=== PATIENT | male | born 2000 | race Caucasian/White ===

== ENCOUNTER 2023-08-29 21:27 | Emergency (ER) | payer OTHER, SELFPAY ==
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
[2023-08-29 21:36] VITALS: BP 116/73; PULSE 72; RESP 18; TEMP 36.7; O2SAT 98
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
[2023-08-29 22:32] VITALS: BP 123/64; PULSE 82; RESP 16; O2SAT 98
== END 2023-08-29 22:53 | disposition home or self-care (01) ==
LOC: ANHED 22:16
PROVIDERS: Emergency Provider Physician Assistant
DX: S06.0X0A Concussion without loss of consciousness, initial encounter (principal); S13.4XXA Sprain of ligaments of cervical spine, initial encounter; V43.52XA Car driver injured in collision with other type car in traffic accident, initial encounter
CPT/HCPCS: 70450; 72125; 99284

== ENCOUNTER 2023-10-01 16:38 | Emergency (ER) | payer OTHER, SELFPAY ==
[2023-10-01 16:46] VITALS: BP 142/74; PULSE 84; RESP 16; TEMP 37.2; O2SAT 99
[2023-10-01 17:34] LABS: EDINFLUASCREEN Negative; EDINFLUBSCREEN Negative; EDSTREPNEGPOS1 Presumptive Negative
--- NOTE | 2023-10-01 17:53 | ED.URI ---
HPI - URI/Sore Throat General Chief Complaint: Upper Respiratory Infection Stated Complaint: throat/cough/congestion/head/ears Time Seen by Provider: 10/01/23 17:12 Source: patient, RN notes reviewed and old records reviewed Mode of arrival: ambulatory Limitations: no limitations History of Present Illness HPI Narrative: 22 year old male accompanied by significant other presents to express care with complaints of 4 day history of sore throat, nasal congestion, cough, headache and some ear pain. Patient reports that he has not had any nausea or vomiting or diarrhea. He has been taking Mucinex and also some Theraflu for his symptoms. MD elicited complaint: cough, sore throat, rhinorrhea, nasal congestion and other (ear pain) Onset (ago): day(s) (4) Pain scale (0-10): 8 Treatments prior to arrival: other (Mucinex and Theraflu) Related Data Allergies Allergy/AdvReac Type Severity Reaction Status Date / Time Penicillins Allergy Hives Verified 10/01/23 17:31 Review of Systems Review of Systems: CONSTITUTIONAL: Reports malaise, chills, sweats, unknown if fever. EYES: Denies visual changes, redness, or discharge. ENT: Reports rhinorrhea, congestion, sinus pain, otalgia and sore throat. CARDIOVASCULAR: Denies chest pain, palpitations, or edema. RESPIRATORY: Reports cough.? Denies dyspnea. GASTROINTESTINAL: Denies abdominal pain, nausea, vomiting, diarrhea SKIN: Denies rash or itching. MUSCULOSKELETAL: Denies myalgia. NEUROLOGIC: Reports headache. All systems reviewed & are unremarkable except as noted in HPI and below PMFSH Past Medical History Medical History (Updated 10/03/23 @ 07:44 by Oriana Noriega NP) No pertinent past medical history Surgical History Surgical History (Updated 10/03/23 @ 07:47 by Oriana Noriega NP) No history of previous surgery Social History Social History (Updated 10/03/23 @ 07:43 by Oriana Noriega NP) Smoking status: Never smoker Alcohol intake: current Alcohol use details: social Substance use type: does not use Living arrangements: with family Gender identity (if verbalized by the patient): Male Comments At time of signature, agree with nursing past medical, surgical, social and family history. There is no relevant family history pertinent to the presenting complaint Exam Narrative: GENERAL: Well-appearing, well-nourished, and in no acute distress. HEAD: Normocephalic EYES: PERRLA, conjunctivae clear ENT: Nares clear, turbinates edematous and erythematous, clear discharge. Mucous membranes moist.Left TM red and bulging, Right TM pearly garcia with dull light reflex bilaterally; no tragal tenderness. Oropharynx erythematous without lesions. Tonsils not enlarged and without exudate, no drooling, no hoarseness, no trismus, uvula midline. NECK: Supple. No lymphadenopathy CHEST: Clear to auscultation, breath sounds equal. No wheezing, rhonchi, rales, or stridor. No respiratory distress, speaks in full sentences.cough,SAO2 99% on room air HEART: Regular rate and rhythm. No murmur heard. SKIN: Warm, dry, no rash. NEURO: Alert and oriented x3. PSYCH: Normal mood and affect Course Course Emergency Course: Patient is aware of diagnosis, understands and agrees to treatment plan.? Anticipatory guidance given.? Patient agrees to follow-up as directed and is aware of reasons to seek care at the emergency department. Portions of this record may have been created with voice recognition software Level of Care: Express Care Visit Vital Signs Vital signs: Vital Signs Temperature 37.2 C 10/01/23 16:46 Pulse Rate 84 10/01/23 16:46 Respiratory Rate 16 10/01/23 16:46 Blood Pressure 142/74 H 10/01/23 16:46 Pulse Oximetry 99 10/01/23 16:46 Oxygen Delivery Room Air 10/01/23 16:46 Temperature 37.2 C 10/01/23 16:46 Pulse Rate 84 10/01/23 16:46 Respiratory Rate 16 10/01/23 16:46 Blood Pressure 142/74 H
== END 2023-10-01 17:58 | disposition home or self-care (01) ==
PROVIDERS: Emergency Provider Registered Nurse
DX: H66.92 Otitis media, unspecified, left ear (principal); Z20.822 Contact with and (suspected) exposure to COVID-19
CPT/HCPCS: 87081; 87426; 87804; 87880; 99213; G0463

== ENCOUNTER 2025-03-07 18:52 | Emergency (ER) | payer OTHER, SELFPAY ==
--- NOTE | ~2025-03-07 | XR_ITS ---
XR foot LT min 3V INDICATION: injury left foot . COMPARISON: None. FINDINGS: Frontal, lateral and oblique views of the left foot demonstrate no acute fracture or dislocation. IMPRESSION: No acute fracture or dislocation. Reviewed, dictated and finalized at location S. ODUCER
[2025-03-07 19:00] VITALS: BP 135/78; PULSE 98; RESP 20; TEMP 36.7; O2SAT 100
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
== END 2025-03-07 20:04 | disposition home or self-care (01) ==
PROVIDERS: Emergency Provider Registered Nurse
DX: S90.32XA Contusion of left foot, initial encounter (principal); S90.812A Abrasion, left foot, initial encounter; W20.8XXA Other cause of strike by thrown, projected or falling object, initial encounter; Y99.0 Civilian activity done for income or pay
CPT/HCPCS: 73630; 99213; G0463